=== PATIENT | female | born 1980 | race Caucasian/White ===

== ENCOUNTER 2021-05-22 08:18 | Outpatient (CLI) | payer OTHER | END 2021-05-22 21:29 | disposition home or self-care (01) | LOC: SCA 08:18 | PROVIDERS: ATTEND Internal Medicine | DX: I08.1 Rheumatic disorders of both mitral and tricuspid valves (principal); I49.9 Cardiac arrhythmia, unspecified | CPT/HCPCS: 93005; 93306 ==

== ENCOUNTER 2021-09-10 07:58 | Outpatient (CLI) | payer OTHER ==
[2021-09-10 08:51] LABS: BASOPHILS % (AUTO) 0.6 % (0.0-2.0); EOSINOPHILS # (AUTO) 0.1 K/uL (0.0-0.4); EOSINOPHILS % (AUTO) 1.1 % (0.0-4.0); HEMATOCRIT 35.1 % (36-48); LYMPHOCYTES # (AUTO) 1.8 K/uL (1.0-5.5); MEAN CORPUSCULAR HEMOGLOBIN 29 pg (27-31); MEAN CORPUSCULAR HGB CONC 34 % (32-36); MEAN CORPUSCULAR VOLUME 85 fL (79.0-98.0); MONOCYTES # (AUTO) 0.4 K/uL (0.0-1.0); MONOCYTES % (AUTO) 6.1 % (1.7-9.3); NEUTROPHILS % (AUTO) 64.2 % (40.0-70.0); PLATELET COUNT (AUTO) 317 K/uL (130-430); RED BLOOD CELL COUNT(AUTO) 4.15 MIL/uL (4.2-6.2); RED CELL DISTRIBUTION WIDTH 13.8 % (9.0-15.0); WHITE BLOOD COUNT (AUTO) 6.3 K/uL (4.8-10.8)
[2021-09-11 08:06] LABS: HEPATITIS B SURFACE AG Negative (Negative)
== END 2021-09-10 21:13 | disposition home or self-care (01) ==
LOC: SLB 07:58
PROVIDERS: ATTEND Pathology Anatomic Pathology & Clinical Pathology
DX: Z34.91 Encounter for supervision of normal pregnancy, unspecified, first trimester (principal); Z3A.00 Weeks of gestation of pregnancy not specified
CPT/HCPCS: 36415; 85025; 86592; 86762; 86886; 86900; 86901; 87340

== ENCOUNTER 2021-12-31 08:29 | Outpatient (CLI) | payer OTHER ==
[2021-12-31 09:32] LABS: BASOPHILS % (AUTO) 0.5 % (0.0-2.0); EOSINOPHILS # (AUTO) 0.1 K/uL (0.0-0.4); HEMATOCRIT 30.9 % (36-48); HEMOGLOBIN 10.9 g/dL (12.0-16.0); LYMPHOCYTES # (AUTO) 1.6 K/uL (1.0-5.5); LYMPHOCYTES % (AUTO) 18.3 % (20.5-51.5); MEAN CORPUSCULAR HEMOGLOBIN 30 pg (27-31); MEAN CORPUSCULAR HGB CONC 35 % (32-36); MEAN CORPUSCULAR VOLUME 85 fL (79.0-98.0); MONOCYTES # (AUTO) 0.4 K/uL (0.0-1.0); MONOCYTES % (AUTO) 4.4 % (1.7-9.3); NEUTROPHILS # (AUTO) 6.5 K/uL (1.8-7.7); NEUTROPHILS % (AUTO) 75.8 % (40.0-70.0); PLATELET COUNT (AUTO) 218 K/uL (130-430); RED BLOOD CELL COUNT(AUTO) 3.66 MIL/uL (4.2-6.2); RED CELL DISTRIBUTION WIDTH 13.7 % (9.0-15.0); WHITE BLOOD COUNT (AUTO) 8.5 K/uL (4.8-10.8)
[2022-01-02 19:06] LABS: FTA-Ab (T PALLIDUM) Non Reactive (Non Reactive)
== END 2021-12-31 18:31 | disposition home or self-care (01) ==
LOC: SLB 08:29
PROVIDERS: ATTEND Specialist
DX: O24.113 Pre-existing type 2 diabetes mellitus, in pregnancy, third trimester (principal); E11.9 Type 2 diabetes mellitus without complications; Z3A.00 Weeks of gestation of pregnancy not specified
CPT/HCPCS: 36415; 82947; 85025; 86592; 86780

== ENCOUNTER 2022-02-23 06:30 | Inpatient (IN) | payer OTHER ==
[~2022-02-23] VITALS: Ht 162.6 cm; Wt 77.1 kg
[2022-02-23] MEDS ORDERED: LR 1,000 ML IV ONE (07:45)
[2022-02-23] MEDS ORDERED: CEFAZOLIN 2 GM IVPB PREMIX 50 ML IV ONE (07:45)
[2022-02-23 08:09] LABS: BASOPHILS % (AUTO) 0.6 % (0.0-2.0); EOSINOPHILS # (AUTO) 0.1 K/uL (0.0-0.4); HEMATOCRIT 29.1 % (36-48); HEMOGLOBIN 10.1 g/dL (12.0-16.0); LYMPHOCYTES # (AUTO) 1.5 K/uL (1.0-5.5); LYMPHOCYTES % (AUTO) 21.6 % (20.5-51.5); MEAN CORPUSCULAR HEMOGLOBIN 30 pg (27-31); MEAN CORPUSCULAR HGB CONC 35 % (32-36); MEAN CORPUSCULAR VOLUME 85 fL (79.0-98.0); MONOCYTES # (AUTO) 0.5 K/uL (0.0-1.0); MONOCYTES % (AUTO) 6.7 % (1.7-9.3); NEUTROPHILS # (AUTO) 4.9 K/uL (1.8-7.7); NEUTROPHILS % (AUTO) 70.1 % (40.0-70.0); PLATELET COUNT (AUTO) 159 K/uL (130-430); RED CELL DISTRIBUTION WIDTH 15.2 % (9.0-15.0); WHITE BLOOD COUNT (AUTO) 7.1 K/uL (4.8-10.8)
[2022-02-23 08:12] LABS: BILIRUBIN,URINE NEGATIVE (NEGATIVE); BLOOD, URINE NEGATIVE (NEGATIVE); CLARITY/URINE CLEAR (CLEAR); COLOR,URINE YELLOW (YELLOW); GLUCOSE,URINE NEGATIVE (NEGATIVE); KETONES,URINE NEGATIVE (NEGATIVE); LEUKOCYTE ESTERASE ,URINE NEGATIVE (NEGATIVE); NITRITE, URINE NEGATIVE (NEGATIVE); PROTEIN URINE NEGATIVE (NEGATIVE); UROBILINOGEN,URINE 0.2 (0.2-1.0)
[2022-02-23] MEDS ORDERED: LR 1,000 ML IV.SOLN IV ONE (08:30)
[2022-02-23] MEDS ORDERED: BUPIVACAINE /DEX PF 0.75% SPINAL 2 ML AMP INJ ONE (08:30)
[2022-02-23] MEDS ORDERED: PHENYLEPHRINE HCL 10 MG/ML VIAL (NEOSYNEPHRINE) ONE (08:30)
[2022-02-23] MEDS ORDERED: fentaNYL CITRATE/PF 100 MCG/2 ML AMP ONE (08:30)
[2022-02-23] MEDS ORDERED: MORPHINE SULFATE 10MG/10ML PF AMP ONE (08:30)
[2022-02-23] MEDS ORDERED: NS IRRIG SOLN 1000 ML IR ONE (08:30)
[2022-02-23] MEDS ORDERED: MIDAZOLAM HCL 5 MG/5 ML VIAL ONE (08:30)
[2022-02-23] MEDS ORDERED: MORPHINE SULFATE 10MG/10ML PF AMP SP SCH (09:15)
[2022-02-23] MEDS ORDERED: fentaNYL CITRATE/PF 100 MCG/2 ML AMP IVP PRN ×2 (09:15)
[2022-02-23] MEDS ORDERED: ONDANSETRON HCL 4 MG/2 ML VIAL IVP PRN ×2 (09:15)
[2022-02-23] MEDS ORDERED: NALOXONE HCL 0.4 MG/ML AMP (NARCAN) IVP PRN ×3 (09:15→09:45)
[2022-02-23] MEDS ORDERED: KETOROLAC TROMETHAMINE 60 MG/2 ML VIAL IM PRN (09:15)
[2022-02-23] MEDS ORDERED: METOCLOPRAMIDE HCL 10 MG/2 ML VIAL IVP PRN (09:15)
[2022-02-23] MEDS ORDERED: NALBUPHINE HCL 10 MG/ML AMP IVP PRN (09:15)
[2022-02-23] MEDS ORDERED: DIPHTH,PERTUSS(ACELL),TET VAC 0.5 ML VIAL (Tdap) I.M. PRN (09:45)
[2022-02-23] MEDS ORDERED: LANOLIN 7 GM OINT. TP PRN (09:45)
[2022-02-23] MEDS ORDERED: TEMAZEPAM 15 MG CAPSULE PO PRN (09:45)
[2022-02-23] MEDS ORDERED: OXYCODONE/ACETAMINOPHEN *10*mg/325 mg TABLET PO PRN (09:45)
[2022-02-23] MEDS ORDERED: MEASLES,MUMPS&RUBELLA VACC/PF 12500 UNIT/0.5 ML VIAL SUBQ PRN (09:45)
[2022-02-23] MEDS ORDERED: BISACODYL 10 MG/SUPPOSITORY RC PRN (09:45)
[2022-02-23] MEDS ORDERED: HYDROcodone/ACETAMIN 5-325 MG TAB (NORCO/ VICODIN) PO PRN (09:45)
[2022-02-23] MEDS ORDERED: ANUSOL 1 EA SUPP.RECT (PREPARATION H) RC PRN (09:45)
[2022-02-23] MEDS ORDERED: LR 1,000 ML IV SCH (09:45)
[2022-02-23] MEDS ORDERED: RHO(D) IMMUNE GLOBULIN/MALTOSE 1500 UNITS/1.3 ML (WINHRO) IM PRN (09:45)
[2022-02-23] MEDS ORDERED: OXYTOCIN 10 UNIT/ML VIAL ONE (10:09)
[2022-02-23] MEDS: DIPHENHYDRAMINE INJ 50 MG/ML VIAL IVP PRN ×2 (12:03→17:29)
[2022-02-23] MEDS: CEFAZOLIN 1 GM IVPB PREMIX 50 ML IV SCH ×2 (12:05→18:09)
[2022-02-23] MEDS: ACETAMINOPHEN I.V. 1000 MG 100 ML IV SCH ×2 (12:27→18:42)
[2022-02-23 15:10] VITALS: BP_SYST 135
[2022-02-23] MEDS: KETOROLAC TROMETHAMINE 30 MG VIAL IVP SCH (18:12)
[2022-02-23] MEDS: SENNOSIDES/DOCUSATE SODIUM 1 TAB TABLET(SENOKOT-S) PO SCH (21:35)
[2022-02-23] MEDS: DOCUSATE SODIUM 100 MG CAPSULE PO SCH (21:35)
[2022-02-23] MEDS: OXYTOCIN/0.9 % SODIUM CHLORIDE 1,000 ML IV SCH (21:41)
[2022-02-24] MEDS: CEFAZOLIN 1 GM IVPB PREMIX 50 ML IV SCH (00:04)
[2022-02-24] MEDS: KETOROLAC TROMETHAMINE 30 MG VIAL IVP SCH ×3 (00:05→11:46)
[2022-02-24] MEDS: ACETAMINOPHEN I.V. 1000 MG 100 ML IV SCH ×2 (00:47→06:38)
[2022-02-24] MEDS: OXYTOCIN/0.9 % SODIUM CHLORIDE 1,000 ML IV SCH (06:38)
[2022-02-24 07:53] LABS: BASOPHILS % (AUTO) 0.3 % (0.0-2.0); EOSINOPHILS # (AUTO) 0.1 K/uL (0.0-0.4); EOSINOPHILS % (AUTO) 0.8 % (0.0-4.0); HEMOGLOBIN 10.5 g/dL (12.0-16.0); LYMPHOCYTES # (AUTO) 1.2 K/uL (1.0-5.5); LYMPHOCYTES % (AUTO) 14.6 % (20.5-51.5); MEAN CORPUSCULAR HEMOGLOBIN 30 pg (27-31); MEAN CORPUSCULAR HGB CONC 35 % (32-36); MEAN CORPUSCULAR VOLUME 86 fL (79.0-98.0); MONOCYTES # (AUTO) 0.5 K/uL (0.0-1.0); MONOCYTES % (AUTO) 6.7 % (1.7-9.3); NEUTROPHILS # (AUTO) 6.2 K/uL (1.8-7.7); NEUTROPHILS % (AUTO) 77.6 % (40.0-70.0); PLATELET COUNT (AUTO) 151 K/uL (130-430); RED CELL DISTRIBUTION WIDTH 14.9 % (9.0-15.0)
[2022-02-24] MEDS: SIMETHICONE 80 MG TAB.CHEW PO PRN ×2 (08:51→13:41)
[2022-02-24] MEDS: OXYCODONE/ACETAMINOPHEN 5-325 TABLET PO PRN ×3 (14:55→21:35)
[2022-02-24] MEDS ORDERED: OXYCODONE/ACETAMINOPHEN 5-325 TABLET PO ONE (16:15)
[2022-02-24] MEDS: IBUPROFEN 600 MG TABLET PO SCH (18:09)
[2022-02-24] MEDS: SIMETHICONE 80 MG TAB.CHEW PO SCH ×2 (18:12→21:35)
[2022-02-24] MEDS: DOCUSATE SODIUM 100 MG CAPSULE PO SCH (21:34)
[2022-02-24] MEDS: SENNOSIDES/DOCUSATE SODIUM 1 TAB TABLET(SENOKOT-S) PO SCH (21:35)
[2022-02-25] MEDS: IBUPROFEN 600 MG TABLET PO SCH ×4 (00:07→23:48)
[2022-02-25] MEDS: OXYCODONE/ACETAMINOPHEN 5-325 TABLET PO PRN ×5 (03:21→22:20)
[2022-02-25] MEDS: SIMETHICONE 80 MG TAB.CHEW PO SCH ×3 (06:07→13:49)
[2022-02-25] MEDS: DOCUSATE SODIUM 100 MG CAPSULE PO SCH (21:38)
[2022-02-26] MEDS: SENNOSIDES/DOCUSATE SODIUM 1 TAB TABLET(SENOKOT-S) PO SCH (01:33)
[2022-02-26] MEDS: OXYCODONE/ACETAMINOPHEN 5-325 TABLET PO PRN ×2 (04:03→10:46)
[2022-02-26] MEDS: IBUPROFEN 600 MG TABLET PO SCH (06:41)
[2022-02-26] MEDS ORDERED: FLU VACC QS2022-23(6MOS UP)/PF 0.5 ML/SYR SYRINGE I.M. PRN (08:15)
[2022-02-26] MEDS ORDERED: OXYC-128 PO (10:22)
== END 2022-02-26 11:30 | disposition home or self-care (01) | DRG 788 ==
LOC: SPU 06:30 → OBSVTOIN 06:30
PROVIDERS: ADMIT Specialist; ATTEND Specialist
PROC: 10D00Z1 Extraction of Products of Conception, Low, Open Approach (ICD-10-PCS; principal; 2022-02-23 08:05)
DX: O32.1XX0 Maternal care for breech presentation, not applicable or unspecified (principal); O69.81X0 Labor and delivery complicated by cord around neck, without compression, not applicable or unspecified; Z20.822 Contact with and (suspected) exposure to COVID-19; Z3A.37 37 weeks gestation of pregnancy; Z37.0 Single live birth
CPT/HCPCS: 36415; 81003; 85025; 86592; 86886; 86900; 86901; 94760; J0131; J0690; J1200; J1885; J2250; J2274; J2370; J2590; J3010; J3490; J7120